=== PATIENT | female | born 1970 | race Caucasian/White ===

== ENCOUNTER 2020-04-04 08:51 | Outpatient (CLI) | payer OTHER, SELFPAY ==
--- NOTE | ~2020-04-04 | US_ITS ---
EXAMINATION: US abdomen complete DATE: 04/04/2020 09:19 INDICATION: Polycythemia vera TECHNIQUE: Multiple grayscale and Doppler ultrasound images of the abdomen were obtained. COMPARISON: None FINDINGS: Abdominal aorta is normal in caliber measuring 2.4 similar proximally tapering to 2.2 cm in the mid a jennifer and 1.5 similar at the distal aorta. The pancreatic head and body are normal in appearance. The pancreatic tail is not visualized. Visualized inferior vena cava is patent. Liver has normal echogen icity and contour, with a smooth surface. No liver lesion identified. No intrahepatic biliary duct di lation suspected. Portal venous flow was seen in the hepatopetal, normal direction and has normal Dop pler waveform. The gallbladder is normal in appearance. There is no cholelithiasis. The common bile duct measures 2-3 mm, which is normal. Sonographic Bartholomew sign was reported as negative by the sonogr apher. There is normal renal contour and echogenicity bilaterally. The right kidney measures 10.1 x 4 .7 x 4.9 cm and the left 10.8 x 5.5 x 5.4 cm. There are no focal renal lesions identified. There is no hydronephrosis. Spleen is normal and measures 11.4 cm in maximal length. IMPRESSION: 1. Normal abdominal ultrasound with normal splenic length of 11.4 cm. Reviewed, dictated and finalized at [facility]. [employer]
== END 2020-04-04 08:52 | disposition home or self-care (01) ==
PROVIDERS: Visit Provider Internal Medicine Medical Oncology
DX: D45 Polycythemia vera (principal)
CPT/HCPCS: 76700